=== PATIENT | male | born 1995 | race Caucasian/White ===

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

== ENCOUNTER 2017-05-07 19:47 | Emergency (ER) | payer BC, OTHER ==
[~2017-05-07] VITALS: Ht 180.3 cm; Wt 75.0 kg
[2017-05-07] MEDS ORDERED: HALOPERIDOL 5 MG/ML ONE (19:51)
[2017-05-07 20:22] LABS: BASOPHILS # (AUTO) 0.06 x10^3/uL (0-0.3); BASOPHILS % (AUTO) 1 % (0-1); EOSINOPHILS # (AUTO) 0.65 x10^3/uL (0-0.8); EOSINOPHILS % (AUTO) 6 % (1-7); LYMPHOCYTES # (AUTO) 4.86 x10^3/uL (1-6.1); LYMPHOCYTES % (AUTO) 47 % (22-44); MD NO; MEAN CORPUSCULAR HEMOGLOBIN 29.6 pg (27.5-34.5); MEAN PLATELET VOLUME 7.9 fL (7.4-10.4); MONOCYTES # (AUTO) 0.73 x10^3/uL (0-1.4); MONOCYTES % (AUTO) 7 % (2-9); NEUTROPHILS # (AUTO) 4.04 x10^3/uL (1.8-8.0); NEUTROPHILS % (AUTO) 39 % (42-75); PLATELET COUNT 305 x10^3/uL (130-400); RED BLOOD COUNT 5.28 x10^6/uL (4.38-5.82); RED CELL DISTRIBUTION WIDTH 13.2 % (9.4-14.8)
[2017-05-07 20:30] LABS: ALANINE AMINOTRANSFERASE 26 U/L (12-78); ALBUMIN 3.7 g/dL (3.4-5.0); ANION GAP 6 mmol/L (5-15); CALCIUM 8.3 mg/dL (8.5-10.1); CHLORIDE 106 mmol/L (98-107); CREATININE 0.98 mg/dL (0.7-1.3)
[2017-05-07 20:33] LABS: ALKALINE PHOSPHATASE 94 U/L (45-117); BILIRUBIN,TOTAL 1.1 mg/dL (0.2-1.0); SALICYLATE LEVEL < 1.7 mg/dL (2.8-20.0); TOTAL PROTEIN 6.8 g/dL (6.4-8.2)
[2017-05-07 20:35] LABS: ACETAMINOPHEN < 2 mcg/mL (10-30)
[2017-05-07 22:10] VITALS: BP 100/50
[2017-05-07] MEDS ORDERED: ZIPRASIDONE 20 MG INJ IM ONE (22:15)
[2017-05-07 22:26] LABS: AMPHETAMINE SCREEN, URINE Negative (Negative); BARBITURATE SCREEN, URINE Negative (Negative); BENZODIAZEPINE SCREEN, URINE Positive (Negative); CANNABINOID SCREEN, URINE Positive (Negative); COCAINE SCREEN, URINE Positive (Negative); METHADONE SCREEN, URINE Positive (Negative); OPIATE SCREEN, URINE Positive (Negative)
== END 2017-05-07 23:13 | disposition home or self-care (01) ==
LOC: ED 20:33
DX: R45.851 Suicidal ideations (principal); F41.1 Generalized anxiety disorder; F12.129 Cannabis abuse with intoxication, unspecified; F11.129 Opioid abuse with intoxication, unspecified; T62.0X2A Toxic effect of ingested mushrooms, intentional self-harm, initial encounter; G89.29 Other chronic pain; F17.210 Nicotine dependence, cigarettes, uncomplicated; Y92.89 Other specified places as the place of occurrence of the external cause
CPT/HCPCS: 36415; 80053; 80307; 80329; 85025; 96372; 99285; J3486; G0480

== ENCOUNTER 2018-06-12 12:20 | Emergency (ER) | payer BC, OTHER ==
[~2018-06-12] VITALS: Ht 177.8 cm; Wt 84.5 kg
--- NOTE | 2018-06-12 13:48 | NUR ---
PT TO ROOM FROM [facility], PLACED ON MONITOR. PA AT BEDSIDE
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
[2018-06-12] MEDS ORDERED: IBUPROFEN 800 MG TABLET ONE (14:24)
[2018-06-12] MEDS ORDERED: HYDROcodone/APAP 5/325 TABLET ONE (14:24)
[2018-06-12] MEDS ORDERED: IBUPROFEN 800 MG TABLET PO ONE (14:30)
[2018-06-12] MEDS ORDERED: HYDROcodone/APAP 5/325 TABLET PO ONE (14:30)
--- NOTE | 2018-06-12 15:09 | NUR ---
PT TO CT
--- NOTE | 2018-06-12 16:08 | NUR ---
PT UP FOR RECHECK, RESTING IN [facility]. SHOULDER IMMOBILIZER ORDERED
[2018-06-12 16:48] VITALS: BP 129/42
== END 2018-06-12 17:06 | disposition home or self-care (01) ==
LOC: ED 16:32
DX: S43.402A Unspecified sprain of left shoulder joint, initial encounter (principal); S13.4XXA Sprain of ligaments of cervical spine, initial encounter; S00.83XA Contusion of other part of head, initial encounter; S40.012A Contusion of left shoulder, initial encounter; Y04.8XXA Assault by other bodily force, initial encounter; Y93.89 Activity, other specified; Y92.410 Unspecified street and highway as the place of occurrence of the external cause; Y99.8 Other external cause status
CPT/HCPCS: 29105; 70450; 70486; 72125; 99284

== ENCOUNTER 2019-05-27 08:16 | Emergency (ER) | payer MEDICAID, OTHER ==
[~2019-05-27] VITALS: Ht 172.7 cm; Wt 76.9 kg
[2019-05-27] MEDS ORDERED: hydroxyzine PO (08:44)
--- NOTE | 2019-05-27 08:48 | NUR ---
PT LAYING IN BED, ERP TO BEDSIDE, LAB TO BEDSIDE, FATHER AT BEDSIDE. RESPRIATIONS EVEN AND UNLABORED, VSS, WILL CONTINUE TO MONITOR.
[2019-05-27] MEDS ORDERED: SODIUM CHLORIDE 0.9% 1,000ML IVBOLUS ONE (09:00)
[2019-05-27] MEDS ORDERED: ONDANSETRON 2MG/ML, 2ML IVPush ONE (09:00)
[2019-05-27] MEDS ORDERED: KETOROLAC 30 MG/1 ML IVPush ONE (09:00)
[2019-05-27] MEDS ORDERED: SODIUM CHLORIDE FLUSH 10ML SYR IVF ONE (09:00)
[2019-05-27] MEDS ORDERED: KETOROLAC 30 MG/1 ML ONE (09:02)
[2019-05-27] MEDS ORDERED: ONDANSETRON 2MG/ML, 2ML ONE (09:02)
[2019-05-27 09:09] LABS: BASOPHILS # (AUTO) 0.08 x10^3/uL (0-0.1); BASOPHILS % (AUTO) 1 % (0-1); EOSINOPHILS # (AUTO) 0.17 x10^3/uL (0-0.4); EOSINOPHILS % (AUTO) 1 % (1-7); LYMPHOCYTES # (AUTO) 3.08 x10^3/uL (1-3.4); LYMPHOCYTES % (AUTO) 21 % (22-44); MD NO; MEAN CORPUSCULAR HEMOGLOBIN 29.7 pg (27.5-34.5); MEAN CORPUSCULAR HGB CONC 33.5 g/dL (33.2-36.2); MEAN CORPUSCULAR VOLUME 88.7 fL (81-97); MEAN PLATELET VOLUME 8.1 fL (7.4-10.4); MONOCYTES # (AUTO) 1.21 x10^3/uL (0.2-0.8); MONOCYTES % (AUTO) 8 % (2-9); NEUTROPHILS # (AUTO) 10.25 x10^3/uL (1.8-6.8); NEUTROPHILS % (AUTO) 69 % (42-75); PLATELET COUNT 274 x10^3/uL (130-400); RED BLOOD COUNT 5.27 x10^6/uL (4.38-5.82); RED CELL DISTRIBUTION WIDTH 13.4 % (9.4-14.8)
--- NOTE | 2019-05-27 09:15 | NUR ---
PT REFUSED IV, STATES HE HAS TORODOL AT HOME AND IT DOESN'T HELP. PT MAKING STATEMENTS ABOUT LEAVING AMA, STATES I HAVE A LIFE ON THE OUTSIDE. EDUCATED THAT IN PATIENT TREATMENT IS A VIABLE OPTION, PT STATES "I WANT TO GO HOME WHERE I'M COMFORTABLE AND MY MOM WHO'S A NURSE CAN TAKE CARE OF ME." FATHER AT BEDSIDE, TRYING TO CONVINCE PT TO RECEIVE TREAMENT. PT ON PHONE WITH MOM CURRENTLY.
[2019-05-27 09:26] LABS: ALANINE AMINOTRANSFERASE 17 U/L (12-78); ALBUMIN 3.7 g/dL (3.4-5.0); ANION GAP 7 mmol/L (5-15); CALCIUM 9.5 mg/dL (8.5-10.1); CHLORIDE 108 mmol/L (98-107); SALICYLATE LEVEL 7.2 mg/dL (2.8-20.0)
--- NOTE | 2019-05-27 09:29 | NUR ---
BREAK RN: PTS MOTHER CALLED CONCERNED WE WOULD LET PT GO STATING "HE ISN'T HIMSELF, HE DOESN'T KNOW WHAT'S GOING ON". RN SPOKE WITH PT AT LENGTH ABOUT TREATMENT OPTIONS, RECOMMENDATION HE BE ADMITTED AND RISKS OF LEAVING INCLUDING . PT AOX4, FATHER AT BEDSIDE, PT STATES "I JUST WANT A PRESCIPTION TO TAPER, IF NOT I CAN JUST GO GET THEM OFF THE STREETS, I HAVE A JOB AND YOU GUYS ARE JUST GIVING ME ZOFRAN". PT EDUCATED ON NEED FOR MONITORING FOR SEIZURE ACTIVITY AND MEDICAL MANAGEMENT OF OPIATE AND BENZO WITHDRAWL. PT STATES "I DON'T WANT THAT, MY MOM IS A NURSE AND I WANT TO DO THIS AT HOME WITH HER". PT EDUCATED ON LACK OF AVAILABLE RESOUCES IN A HOME SETTING INCLUDING AIRWAY AND SEIZURE CONTROL, PT STATES "I DON'T CARE, I WANT TO GO HOME AND DO THIS AT HOME". MOTHER NOTIFIED OF PTS STATEMENTS AND THAT PT AWARE OF SITUATION AND FULLY UNDERSTANDS AND VERBALIZES CONSEQUENCES AND RISKS. MOTHER STATES UNDERSTANDING
[2019-05-27 09:30] LABS: ALKALINE PHOSPHATASE 69 U/L (45-117); BILIRUBIN,TOTAL 1.1 mg/dL (0.2-1.0); CREATININE 0.97 mg/dL (0.7-1.3); TOTAL PROTEIN 7.4 g/dL (6.4-8.2)
--- NOTE | 2019-05-27 09:38 | NUR ---
MOTHER, JARAD, . OKAY TO UPDATE.
[2019-05-27 09:41] VITALS: BP 136/88
[2019-05-27] MEDS ORDERED: POTASSIUM CHLORIDE 20 MEQ TAB.ER.PRT ONE (09:42)
[2019-05-27] MEDS ORDERED: LORazepam 1MG TABLET ONE (09:43)
--- NOTE | 2019-05-27 09:51 | NUR ---
Josefina salcido in ED - 05/27/19 at 0955 by MARC PT STATED 10 MINUTES AGO THAT HE WAS WILLING TO RECEIVE INPATIENT TREATMENT AT [facility]. PT MEDICATED TO [facility], THEN MAKING STATEMENTS "I'M NOT SURE I'M GOING TO GO THERE."
--- NOTE | 2019-05-27 09:55 | NUR ---
PT STATED 10 MINUTES AGO THAT HE WAS WILLING TO RECEIVE INPATIENT TREATMENT AT [facility]. PT MEDICATED TO [facility], THEN MAKING STATEMENTS "I'M NOT SURE I'M GOING TO GO THERE."
[2019-05-27] MEDS ORDERED: LORazepam 1MG TABLET PO ONE (10:00)
[2019-05-27] MEDS ORDERED: POTASSIUM CHLORIDE 20 MEQ TAB.ER.PRT PO ONE (10:00)
== END 2019-05-27 10:09 | disposition home or self-care (01) ==
LOC: ED 08:57
DX: F13.10 Sedative, hypnotic or anxiolytic abuse, uncomplicated (principal); F11.10 Opioid abuse, uncomplicated; F19.939 Other psychoactive substance use, unspecified with withdrawal, unspecified; R11.2 Nausea with vomiting, unspecified; R45.1 Restlessness and agitation; E87.6 Hypokalemia; G89.29 Other chronic pain
CPT/HCPCS: 36415; 80053; 80307; 85025; 99283

== ENCOUNTER 2019-11-07 17:31 | Emergency (ER) | payer MEDICAID ==
[~2019-11-07] VITALS: Ht 175.3 cm; Wt 82.1 kg
[~2019-11-07 17:31] MED LIST changes: +hydroxyzine PO
[2019-11-07 17:38] VITALS: BP 144/81
[2019-11-07 18:17] LABS: BASOPHILS # (AUTO) 0.06 x10^3/uL (0-0.1); BASOPHILS % (AUTO) 1 % (0-1); EOSINOPHILS # (AUTO) 0.57 x10^3/uL (0-0.4); EOSINOPHILS % (AUTO) 6 % (1-7); LYMPHOCYTES # (AUTO) 3.78 x10^3/uL (1-3.4); LYMPHOCYTES % (AUTO) 37 % (22-44); MD NO; MEAN CORPUSCULAR HEMOGLOBIN 29.4 pg (27.5-34.5); MEAN CORPUSCULAR HGB CONC 33.3 g/dL (33.2-36.2); MEAN CORPUSCULAR VOLUME 88.5 fL (81-97); MEAN PLATELET VOLUME 8.1 fL (7.4-10.4); MONOCYTES # (AUTO) 0.69 x10^3/uL (0.2-0.8); MONOCYTES % (AUTO) 7 % (2-9); NEUTROPHILS # (AUTO) 5.16 x10^3/uL (1.8-6.8); NEUTROPHILS % (AUTO) 50 % (42-75); PLATELET COUNT 261 x10^3/uL (130-400); RED BLOOD COUNT 5.25 x10^6/uL (4.38-5.82); RED CELL DISTRIBUTION WIDTH 14.9 % (9.4-14.8)
[2019-11-07 18:20] LABS: ALBUMIN 3.7 g/dL (3.4-5.0); ANION GAP 6 mmol/L (5-15); CALCIUM 8.9 mg/dL (8.5-10.1); CHLORIDE 108 mmol/L (98-107); CREATININE 0.98 mg/dL (0.7-1.3); SALICYLATE LEVEL < 1.7 mg/dL (2.8-20.0)
--- NOTE | 2019-11-07 18:22 | NUR ---
pt's mother danis's number [phone]
--- NOTE | 2019-11-07 18:22 | NUR ---
urine collected and ua sent.
--- NOTE | 2019-11-07 18:34 | NUR ---
service desk team lead at bedside at this time.
[2019-11-07 18:44] LABS: AMPHETAMINE SCREEN, URINE Negative (Negative); BARBITURATE SCREEN, URINE Negative (Negative); BENZODIAZEPINE SCREEN, URINE Negative (Negative); CANNABINOID SCREEN, URINE Positive (Negative); OPIATE SCREEN, URINE Negative (Negative)
[2019-11-07 18:45] LABS: COCAINE SCREEN, URINE Negative (Negative); METHADONE SCREEN, URINE Negative (Negative)
[2019-11-07] MEDS ORDERED: OLANZAPINE 2.5 MG TABLET PO ONE (19:00)
--- NOTE | 2019-11-07 19:00 | NUR ---
report given to cali wilkinson.
--- NOTE | 2019-11-07 19:40 | NUR ---
Pt given 2.5mg Zyprexa PO prior to discharge. Discharge paperwork reviewed. Prescriptions given to pt. Pt verbalized understanding.
== END 2019-11-07 19:41 | disposition home or self-care (01) ==
LOC: ED 18:27
DX: F39 Unspecified mood [affective] disorder (principal); F32.9 Major depressive disorder, single episode, unspecified; G47.00 Insomnia, unspecified; G89.29 Other chronic pain; F17.200 Nicotine dependence, unspecified, uncomplicated; Z90.49 Acquired absence of other specified parts of digestive tract
CPT/HCPCS: 36415; 80048; 80307; 82040; 85025; 99283

== ENCOUNTER 2020-07-25 11:32 | Outpatient (CLI) | payer MEDICAID | END 2020-07-25 23:59 | disposition home or self-care (01) | LOC: SMMGNV 11:32 | PROVIDERS: ATTEND Nurse Practitioner Family | DX: Z02.9 Encounter for administrative examinations, unspecified (principal) ==